=== PATIENT | male | born 1965 | race Caucasian/White ===

== ENCOUNTER 2018-01-01 05:50 | Day surgery (SDC) | payer OTHER ==
[2018-01-01] MEDS ORDERED: CEFAZOLIN 2 GM/50 ML (PMX) 50 ML IVPB (06:34)
[2018-01-01] MEDS ORDERED: SOD CHLORIDE 0.9% 1,000 ML IV (07:00)
[2018-01-01] MEDS ORDERED: LIDOCAINE 2% (SDV) 5 ML INJ (07:00)
[2018-01-01] MEDS ORDERED: CEFAZOLIN 1 GM INJ (07:00)
[2018-01-01] MEDS: BUPIVACAINE 0.25% (MPF) 30 ML INJ (08:10)
[2018-01-01] MEDS: POLYMYXIN/BACITRACIN 1L IRRIG (08:10)
[2018-01-01] MEDS ORDERED: PROPOFOL 20 ML (08:27)
[2018-01-01] MEDS ORDERED: ROCURONIUM 50 MG INJ (08:27)
[2018-01-01] MEDS ORDERED: SUGAMMADEX SODIUM 200 MG/2 ML VIAL IV (08:27)
[2018-01-01] MEDS ORDERED: HYDROmorphONE (0.2 MG/ML) 10ML SYG IV ×2 (08:40→09:00)
[2018-01-01] MEDS: HYDROmorphONE (0.2 MG/ML) 10ML SYG IV ×2 (08:53→09:02)
[2018-01-01] MEDS: FENTAnyl 50 MCG/ML VIAL IV ×2 (08:57→09:08)
[2018-01-01] MEDS ORDERED: FENTAnyl 50 MCG/ML VIAL IV (09:00)
[2018-01-01] MEDS ORDERED: LABETALOL HCL 20MG INJ IV (09:00)
[2018-01-01] MEDS ORDERED: ONDANSETRON 4 MG INJ IV (09:00)
[2018-01-01] MEDS ORDERED: METOCLOPRAMIDE 10 MG INJ IV (09:00)
[2018-01-01] MEDS ORDERED: OXYCODONE/ACETAMINOPHEN (5/325) TAB PO ×2 (09:00)
[2018-01-01] MEDS ORDERED: DIPHENHYDRAMINE 50 MG INJ IV (09:00)
[2018-01-01] MEDS ORDERED: hydrALAzine 20 MG INJ IV (09:00)
[2018-01-01] MEDS ORDERED: ALBUTEROL 0.083% (NEB) 2.5 MG/3 ML AMP HHN (09:00)
[2018-01-01] MEDS ORDERED: MEPERIDINE 25 MG INJ IV (09:00)
[2018-01-01] MEDS ORDERED: EPHEDrine SULFATE 50 MG/5 ML SYG IV (09:00)
[2018-01-01] MEDS ORDERED: KETOROLAC 30 MG INJ IV (09:00)
[2018-01-01] MEDS: HYDROCODONE/APAP (5/325) TAB PO (09:13)
== END 2018-01-01 10:50 | disposition home or self-care (01) ==
LOC: SDS 05:50
DX: K43.6 Other and unspecified ventral hernia with obstruction, without gangrene (principal); I10 Essential (primary) hypertension
CPT/HCPCS: 49653

== ENCOUNTER → 2018-04-26 | Outpatient (CLI) | payer OTHER | END | disposition home or self-care (01) | LOC: HKI 13:20 | DX: I10 Essential (primary) hypertension (principal); M10.9 Gout, unspecified; M87.9 Osteonecrosis, unspecified | CPT/HCPCS: 73523 ==

== ENCOUNTER → 2018-06-26 | Outpatient (CLI) | payer OTHER | END | disposition home or self-care (01) | LOC: HKI 13:28 | DX: Z01.818 Encounter for other preprocedural examination (principal) | CPT/HCPCS: Z7500 ==

== ENCOUNTER 2018-06-27 07:27 | Inpatient (IN) | payer OTHER ==
[2018-06-27] MEDS: CEFAZOLIN 2 GM/50 ML (PMX) 50 ML IVPB (07:00)
[2018-06-27] MEDS: LACTATED RINGER'S 1,000 ML IV* (08:00)
[2018-06-27] MEDS: ONDANSETRON 4 MG INJ IV ×4 (08:25→21:24)
[2018-06-27] MEDS: DEXAMETHASONE 4 MG/ML 1 ML INJ IV (08:25)
[2018-06-27] MEDS: LANSOPRAZOLE 30 MG CAP PO (08:25)
[2018-06-27] MEDS: TRANEXAMIC ACID 1,000 MG in NS 100 ML INTRA-OP X1 IVPB (09:30)
[2018-06-27] MEDS: SOD CHLORIDE 0.9% 1,000 ML IV ×2 (09:50→22:20)
[2018-06-27] MEDS ORDERED: NA PHOSPHATE/BIPHOS 133 ML ENEMA PR (10:00)
[2018-06-27] MEDS ORDERED: DIPHENHYDRAMINE 50 MG INJ IV ×2 (10:00→11:30)
[2018-06-27] MEDS ORDERED: MAGNESIUM HYDROXIDE 30ML CUP PO (10:00)
[2018-06-27] MEDS ORDERED: NALOXONE (0.4 MG/ML) INJ IV ×2 (10:00→11:30)
[2018-06-27] MEDS ORDERED: NACL 0.9% 3 ML SYG IV (10:00)
[2018-06-27] MEDS ORDERED: BISACODYL 10 MG SUPP PR (10:00)
[2018-06-27] MEDS ORDERED: LIDOCAINE 2% (SDV) 5 ML INJ (10:04)
[2018-06-27] MEDS ORDERED: morphine SULFATE/PF (10 MG/10 ML) INJ (10:04)
[2018-06-27] MEDS ORDERED: PROPOFOL 20 ML (10:04)
[2018-06-27] MEDS ORDERED: POLYMYXIN/BACITRACIN 1L IRRIG (10:05)
[2018-06-27] MEDS ORDERED: ONDANSETRON 4 MG INJ (10:13)
[2018-06-27] MEDS: TRANEXAMIC ACID 1,000 MG in NS 100 ML PRE-OP X1 IVPB (10:23)
[2018-06-27] MEDS: BACITRACIN 50000 UNITS INJ IRR (11:16)
[2018-06-27] MEDS: POLYMYXIN B 500000 UNIT INJ (11:16)
[2018-06-27] MEDS ORDERED: ONDANSETRON 4 MG INJ IV (11:30)
[2018-06-27] MEDS: HIP PAIN COCKTAIL (CEFUROXIME) INJ (12:20)
[2018-06-27] MEDS ORDERED: BACITRACIN 50000 UNITS INJ (12:59)
[2018-06-27] MEDS: HYDROmorphONE 0.5 MG/0.5 ML SYG IV ×3 (13:04→16:08)
[2018-06-27] MEDS: ASPIRIN (EC) 325 MG TAB PO ×2 (13:13→20:20)
[2018-06-27] MEDS: DOCUSATE SODIUM 100 MG CAP PO (13:13)
[2018-06-27] MEDS: CEFAZOLIN 1 GM/50 ML (PMX) 50 ML IVPB ×2 (13:14→20:21)
[2018-06-27] MEDS: KETOROLAC 30 MG INJ IV (14:00)
[2018-06-27] MEDS: oxyCODONE 5 MG TAB PO ×3 (14:41→21:23)
[2018-06-27] MEDS: ATORVASTATIN 40 MG TAB PO (20:19)
[2018-06-27] MEDS: GABAPENTIN 100 MG CAP PO (20:19)
[2018-06-28] MEDS: SENNA/DOCUSATE NA (8.6MG/50MG) TAB PO (02:11)
[2018-06-28] MEDS: oxyCODONE 5 MG TAB PO ×4 (02:11→13:15)
[2018-06-28] MEDS: ONDANSETRON 4 MG INJ IV (04:00)
[2018-06-28] MEDS: PANTOPRAZOLE (EC) 40 MG TAB PO (05:01)
[2018-06-28] MEDS: CEFAZOLIN 1 GM/50 ML (PMX) 50 ML IVPB (05:01)
[2018-06-28 05:34] LABS: ADD MAN DIFF? NO
[2018-06-28 05:37] LABS: WHITE BLOOD COUNT 10.2 10^3/ul (4.8-10.8)
[2018-06-28 05:37] LABS: BASOPHILS % 0.1 % (0.0-2.0); EOSINOPHILS % 0.1 % (0.0-7.0); HEMATOCRIT 36.2 % (42.0-52.0); HEMOGLOBIN 11.8 g/dl (14.0-18.0); LYMPHOCYTES # 1.1 10^3/ul (0.8-2.9); LYMPHOCYTES % 10.8 % (15.0-51.0); MEAN CORPUSCULAR HEMOGLOBIN 31.5 pg (29.0-33.0); MEAN CORPUSCULAR HGB CONC 32.6 g/dl (32.0-37.0); MEAN CORPUSCULAR VOLUME 96.5 fl (82.0-101.0); MEAN PLATELET VOLUME 10.7 fl (7.4-10.4); MONOCYTE # 1.3 10^3/ul (0.3-0.9); MONOCYTES % 12.7 % (0.0-11.0); NEUTROPHIL # 7.7 10^3/ul (1.6-7.5); NEUTROPHILS % 75.6 % (39.0-77.0); PLATELET COUNT 203 10^3/UL (140-415); RED BLOOD COUNT 3.75 10^6/ul (4.70-6.10); RED CELL DISTRIBUTION WIDTH 13.2 % (11.5-14.5)
[2018-06-28 05:59] LABS: ANION GAP 12 (8-16); BLOOD UREA NITROGEN 11 mg/dl (7-20); CALCIUM 9.1 mg/dl (8.4-10.2); CARBON DIOXIDE 24 mmol/L (21-31); CHLORIDE 105 mmol/L (97-110); CREATININE 0.72 mg/dl (0.61-1.24); GLUCOSE 126 mg/dl (70-220); POTASSIUM 4.3 mmol/L (3.5-5.1); SODIUM 137 mmol/L (135-144)
[2018-06-28] MEDS: BETHANECHOL 25 MG TAB PO (06:42)
[2018-06-28] MEDS: FERROUS FUMARATE (SR) TAB PO (09:03)
[2018-06-28] MEDS: AMLODIPINE 2.5 MG TAB PO (09:04)
[2018-06-28] MEDS: ALLOPURINOL 100 MG TAB PO (09:04)
[2018-06-28] MEDS: GABAPENTIN 100 MG CAP PO (09:04)
[2018-06-28] MEDS: CELECOXIB 200 MG CAP PO (09:04)
[2018-06-28] MEDS: DOCUSATE SODIUM 100 MG CAP PO (09:04)
[2018-06-28] MEDS: ASPIRIN (EC) 325 MG TAB PO (09:04)
[2018-06-28] MEDS ORDERED: DIPHENHYDRAMINE 50 MG INJ IV (10:13)
[2018-06-28] MEDS: SOD CHLORIDE 0.9% 1,000 ML IV (10:50)
== END 2018-06-28 13:20 | disposition home health service (06) | DRG 470 ==
LOC: REC 07:27 → MS1 14:17
PROC: 0SR904Z Replacement of Right Hip Joint with Ceramic on Polyethylene Synthetic Substitute, Open Approach (ICD-10-PCS; principal; 2018-06-27 10:23)
DX: M16.11 Unilateral primary osteoarthritis, right hip (principal); I10 Essential (primary) hypertension; E78.5 Hyperlipidemia, unspecified; M10.9 Gout, unspecified
CPT/HCPCS: 72170; 73500; 73530; 80048; 85025; 86850; 86900; 86901; 87086; 88304; 88311; 97110; 97116; 97161; 97167; 97530; 97535

== ENCOUNTER → 2018-07-10 | Outpatient (CLI) | payer OTHER | END | disposition home or self-care (01) | LOC: HKI 13:59 | DX: Z47.1 Aftercare following joint replacement surgery (principal); Z96.641 Presence of right artificial hip joint | CPT/HCPCS: 73502 ==

== ENCOUNTER → 2018-10-08 | Outpatient (CLI) | payer OTHER | END | disposition home or self-care (01) | LOC: HKI 09:22 | DX: M16.12 Unilateral primary osteoarthritis, left hip (principal) | CPT/HCPCS: 73502 ==

== ENCOUNTER 2018-11-28 05:50 | Inpatient (IN) | payer OTHER ==
[2018-11-28] MEDS ORDERED: CEFAZOLIN 1 GM INJ (07:00)
[2018-11-28] MEDS ORDERED: METOCLOPRAMIDE 10 MG INJ (07:00)
[2018-11-28] MEDS ORDERED: PROPOFOL 200 MG INJ (07:00)
[2018-11-28] MEDS ORDERED: DEXAMETHASONE 4 MG/ML 5 ML INJ (07:00)
[2018-11-28] MEDS: LACTATED RINGER'S 1,000 ML IV* (07:07)
[2018-11-28] MEDS ORDERED: morphine SULFATE/PF (10 MG/10 ML) INJ (07:23)
[2018-11-28] MEDS ORDERED: FENTAnyl 50 MCG/ML VIAL (07:23)
[2018-11-28] MEDS ORDERED: MIDAZOLAM 1 MG/ML 2 ML INJ (07:23)
[2018-11-28] MEDS ORDERED: PROPOFOL 20 ML (07:24)
[2018-11-28] MEDS ORDERED: ONDANSETRON 4 MG INJ (07:24)
[2018-11-28] MEDS ORDERED: LIDOCAINE 2% (SDV) 5 ML INJ (07:24)
[2018-11-28] MEDS ORDERED: EPINEPHrine 1 MG INJ (07:28)
[2018-11-28] MEDS ORDERED: DIPHENHYDRAMINE 50 MG INJ IV (07:30)
[2018-11-28] MEDS ORDERED: FENTAnyl 50 MCG/ML VIAL IV ×2 (07:30)
[2018-11-28] MEDS ORDERED: MEPERIDINE 25 MG INJ IV (07:30)
[2018-11-28] MEDS ORDERED: HYDROmorphONE 1 MG/5 ML IV SYRINGE IV (07:30)
[2018-11-28] MEDS ORDERED: MIDAZOLAM 1 MG/ML 2 ML INJ IV (07:30)
[2018-11-28] MEDS ORDERED: hydrALAzine 20 MG INJ IV (07:30)
[2018-11-28] MEDS ORDERED: IPRATROPIUM (NEB) 0.5 MG/2.5 ML AMP HHN (07:30)
[2018-11-28] MEDS ORDERED: LABETALOL HCL 20MG INJ IV (07:30)
[2018-11-28] MEDS ORDERED: LEVALBUTEROL (NEB) 1.25 MG/0.5 ML AMP HHN (07:30)
[2018-11-28] MEDS ORDERED: LORAZEPAM 2 MG INJ IV (07:30)
[2018-11-28] MEDS ORDERED: ONDANSETRON 4 MG INJ IV (07:30)
[2018-11-28] MEDS: BACITRACIN 50000 UNITS INJ (08:17)
[2018-11-28] MEDS: HIP PAIN COCKTAIL VANCO INJ (08:19)
[2018-11-28] MEDS: POLYMYXIN B 500000 UNIT INJ (08:19)
[2018-11-28] MEDS ORDERED: BISACODYL 10 MG SUPP PR (10:00)
[2018-11-28] MEDS ORDERED: NA PHOSPHATE/BIPHOS 133 ML ENEMA PR (10:00)
[2018-11-28] MEDS ORDERED: NALOXONE (0.4 MG/ML) INJ IV (10:00)
[2018-11-28] MEDS ORDERED: MAGNESIUM HYDROXIDE 30ML CUP PO (10:00)
[2018-11-28] MEDS ORDERED: NACL 0.9% 3 ML SYG IV (10:00)
[2018-11-28] MEDS ORDERED: SENNA/DOCUSATE NA (8.6MG/50MG) TAB PO (10:00)
[2018-11-28] MEDS: HYDROmorphONE 1 MG/5 ML IV SYRINGE IV ×3 (10:37→11:27)
[2018-11-28] MEDS: CEFAZOLIN 2 GM/50 ML (PMX) 50 ML IVPB ×3 (10:37→17:43)
[2018-11-28] MEDS: DOCUSATE SODIUM 100 MG CAP PO (10:37)
[2018-11-28] MEDS: TRANEXAMIC ACID 1,000 MG in NS 100 ML INTRA-OP X1 IVPB (13:02)
[2018-11-28] MEDS: TRANEXAMIC ACID 1,000 MG in NS 100 ML PRE-OP X1 IVPB (13:02)
[2018-11-28] MEDS ORDERED: HYDROCODONE/APAP (5/325) TAB PO (14:30)
[2018-11-28] MEDS ORDERED: traMADol 50 MG TAB PO (14:30)
[2018-11-28] MEDS: HYDROCODONE/APAP (5/325) TAB PO (14:33)
[2018-11-28] MEDS: KETOROLAC 15 MG INJ IV (17:43)
[2018-11-28] MEDS ORDERED: GABAPENTIN 300 MG CAP PO (21:00)
[2018-11-29] MEDS ORDERED: PANTOPRAZOLE (EC) 40 MG TAB PO (06:00)
[2018-11-29] MEDS ORDERED: ASPIRIN (EC) 81 MG TAB PO (09:00)
[2018-11-29] MEDS ORDERED: CELECOXIB 100 MG CAP PO (09:00)
[2018-11-29] MEDS ORDERED: DOCUSATE SODIUM 100 MG CAP PO (09:00)
== END 2018-11-28 18:48 | disposition home health service (06) | DRG 470 ==
LOC: REC 05:50 → MS1 11:40
PROC: 0SRB04A Replacement of Left Hip Joint with Ceramic on Polyethylene Synthetic Substitute, Uncemented, Open Approach (ICD-10-PCS; principal; 2018-11-28 07:25)
PROC: 8E0YXBZ Computer Assisted Procedure of Lower Extremity (ICD-10-PCS; 2018-11-28 07:25)
DX: M16.12 Unilateral primary osteoarthritis, left hip (principal); M10.9 Gout, unspecified; F41.9 Anxiety disorder, unspecified; I10 Essential (primary) hypertension
CPT/HCPCS: 72170; 73530; 87086; 88304; 88311; 97162; 97167

== ENCOUNTER → 2018-12-11 | Outpatient (CLI) | payer OTHER | END | disposition home or self-care (01) | LOC: HKI 13:41 | DX: Z09 Encounter for follow-up examination after completed treatment for conditions other than malignant neoplasm (principal); Z96.642 Presence of left artificial hip joint | CPT/HCPCS: 73502 ==

== ENCOUNTER → 2019-01-15 | Outpatient (CLI) | payer OTHER | END | disposition home or self-care (01) | LOC: HKI 14:15 | DX: Z09 Encounter for follow-up examination after completed treatment for conditions other than malignant neoplasm (principal); Z96.642 Presence of left artificial hip joint | CPT/HCPCS: 73523 ==

== ENCOUNTER 2019-04-11 10:09 | Day surgery (SDC) | payer OTHER ==
[2019-04-11 11:00] LABS: ADD MAN DIFF? NO
[2019-04-11 11:05] LABS: WHITE BLOOD COUNT 4.7 10^3/ul (4.8-10.8)
[2019-04-11 11:05] LABS: BASOPHILS % 0.4 % (0.0-2.0); EOSINOPHILS # 0.1 10^3/ul (0.0-0.5); EOSINOPHILS % 2.3 % (0.0-7.0); HEMATOCRIT 44.2 % (42.0-52.0); HEMOGLOBIN 14.4 g/dl (14.0-18.0); LYMPHOCYTES % 20.5 % (15.0-51.0); MEAN CORPUSCULAR HEMOGLOBIN 30.1 pg (29.0-33.0); MEAN CORPUSCULAR HGB CONC 32.6 g/dl (32.0-37.0); MEAN CORPUSCULAR VOLUME 92.5 fl (82.0-101.0); MEAN PLATELET VOLUME 10.3 fl (7.4-10.4); MONOCYTE # 0.6 10^3/ul (0.3-0.9); MONOCYTES % 12.7 % (0.0-11.0); NEUTROPHILS % 63.5 % (39.0-77.0); PLATELET COUNT 221 10^3/UL (140-415); RED BLOOD COUNT 4.78 10^6/ul (4.70-6.10); RED CELL DISTRIBUTION WIDTH 14.3 % (11.5-14.5)
[2019-04-11] MEDS: SOD CHLORIDE 0.9% 1,000 ML IV (11:14)
[2019-04-11 11:26] LABS: ALANINE AMINOTRANSFERASE 72 IU/L (13-69); ALBUMIN 4.8 g/dl (3.3-4.9); ALKALINE PHOSPHATASE 92 IU/L (42-121); ANION GAP 12 (5-13); ASPARTATE AMINO TRANSFERASE 55 IU/L (15-46); BILIRUBIN,INDIRECT 0.5 mg/dl (0-1.1); BILIRUBIN,TOTAL 0.5 mg/dl (0.2-1.3); BLOOD UREA NITROGEN 15 mg/dl (7-20); CALCIUM 9.7 mg/dl (8.4-10.2); CARBON DIOXIDE 23 mmol/L (21-31); CHLORIDE 107 mmol/L (97-110); CREATININE 0.87 mg/dl (0.61-1.24); Estimated GFR > 60 mL/min (>60); GLUCOSE 107 mg/dl (70-220); POTASSIUM 4.5 mmol/L (3.5-5.1); SODIUM 142 mmol/L (135-144); TOTAL PROTEIN 7.8 g/dl (6.1-8.1)
[2019-04-11 11:30] LABS: INR 0.89; PROTIME 12.1 Sec (11.9-14.9); PT RATIO 0.9
[2019-04-11 11:31] LABS: PARTIAL THROMBOPLASTIN TIME 31.5 Sec (23.0-35.0)
[2019-04-11] MEDS ORDERED: ONDANSETRON 4 MG INJ (13:05)
[2019-04-11] MEDS ORDERED: PROPOFOL 20 ML (13:05)
[2019-04-11] MEDS ORDERED: CEFAZOLIN 1 GM INJ (13:05)
[2019-04-11] MEDS ORDERED: MIDAZOLAM 1 MG/ML 2 ML INJ (13:05)
[2019-04-11] MEDS ORDERED: KETOROLAC 30 MG INJ (13:05)
[2019-04-11] MEDS: BUPIVACAINE 0.5% (SDV) 30 ML INJ (14:33)
[2019-04-11] MEDS: LIDOCAINE 2% (MDV) 20 ML INJ (14:33)
[2019-04-11] MEDS ORDERED: HYDROmorphONE 1 MG/5 ML IV SYRINGE IV (15:00)
[2019-04-11] MEDS ORDERED: OXYCODONE/ACETAMINOPHEN (5/325) TAB PO (15:00)
[2019-04-11] MEDS ORDERED: HYDROCODONE/APAP (5/325) TAB PO (15:00)
[2019-04-11] MEDS ORDERED: FENTAnyl 50 MCG/ML VIAL IV (15:00)
[2019-04-11] MEDS ORDERED: ONDANSETRON 4 MG INJ IV (15:00)
== END 2019-04-11 15:49 | disposition home or self-care (01) ==
LOC: SDS 10:09
DX: L72.0 Epidermal cyst (principal); I10 Essential (primary) hypertension; E78.5 Hyperlipidemia, unspecified
CPT/HCPCS: 14000; 71045; 80053; 85025; 85610; 85730; 88307; 93005